=== PATIENT | female | born 1985 | race Caucasian/White ===

== ENCOUNTER 2016-12-28 07:34 | Observation (INO) | payer OTHER ==
[2016-12-28] VITALS (10 sets, daily range): BP systolic 119–138; BP diastolic 71–92; PULSE 90–112; RESP 16–30; TEMP 98.1–98.8; O2SAT 95–100
[~2016-12-28] VITALS: Ht 144.8 cm; Wt 50.0 kg
[2016-12-28] MEDS ORDERED: HYDROmorphone HCL PF 1 MG/ML VIAL IV PUSH ONE (08:15)
[2016-12-28] MEDS ORDERED: SODIUM CHLORIDE 0.9% FLUSH 5 ML FLUSH IVF PRN (08:15)
[2016-12-28 08:44] LABS: AUTOMATED NEUTROPHIL # 9.4 TH/MM3 (1.8-7.7); BASOPHIL % 0.1 % (0.0-2.0); EOSINOPHIL % 0.2 % (0.0-4.0); HEMATOCRIT 37.1 % (35.0-46.0); HEMO FLAGS DIFF FINAL; LYMPH % 15.2 % (9.0-44.0); LYMPHOCYTE # 1.9 TH/MM3 (1.0-4.8); MEAN CELL VOLUME 87.3 FL (80.0-100.0); MEAN CORPUSCULAR HEMOGLOBIN 29.8 PG (27.0-34.0); MEAN CORPUSCULAR HGB CONC 34.1 % (32.0-36.0); MONO % 9.6 % (0.0-8.0); NEUT % 74.9 % (16.0-70.0); PLATELET COUNT 293 TH/MM3 (150-450); RED BLOOD COUNT 4.25 MIL/MM3 (4.00-5.30); RED CELL DISTRIBUTION WIDTH 15.4 % (11.6-17.2); WHITE BLOOD COUNT 12.6 TH/MM3 (4.0-11.0)
[2016-12-28 08:51] LABS: APTT (PATIENT) 32.4 SEC (24.3-30.1); INTERNATIONAL NORMALIZED RATIO 0.9 RATIO; PROTHROMBIN TIME - PATIENT 10.2 SEC (9.8-11.6)
[2016-12-28 08:56] LABS: ANION GAP 9 MEQ/L (5-15); AST (GOT) 32 U/L (15-37); BICARBONATE 31.3 MEQ/L (21.0-32.0); BLOOD UREA NITROGEN 9 MG/DL (7-18); CHLORIDE 95 MEQ/L (98-107); GLOMERULAR FILTRATION RATE 91 ML/MIN (>89); POTASSIUM 3.9 MEQ/L (3.5-5.1); SODIUM (NA) 135 MEQ/L (136-145)
[2016-12-28 09:01] LABS: ALKALINE PHOSPHATASE 79 U/L (45-117); ALT (GPT) 55 U/L (10-53); TOTAL BILIRUBIN ADULT 0.9 MG/DL (0.2-1.0)
[2016-12-28 09:07] LABS: BACTERIA, URINE OCC /hpf; BLOOD, URINE NEG (NEG); COMMENT (UR) CULTURE INDICATED; CULTURE IF INDICATED CULTURE INDICATED; GLUCOSE,URINE 150 mg/dL (NEG); KETONE, URINE NEG (NEG); MUCUS URINE MANY /lpf (OCC); NITRITE,URINE NEG (NEG); PH, URINE 5.5 (5.0-8.5); SQUAMOUS EPITHELIAL CELL URINE 103 /hpf (0-5); URINE COLOR YELLOW (YELLW/STRAW)
--- NOTE | 2016-12-28 09:09 | RADRPT ---
EXAM DATE/TIME: 12/28/2016 08:46 [facility] COMPARISON: No previous studies available for comparison. INDICATIONS : Patient states left arm and chest pain. MEDICAL HISTORY : Smoker SURGICAL HISTORY : None. ENCOUNTER: Initial ACUITY: 1 day PAIN SCORE: 5/10 LOCATION: Bilateral chest FINDINGS: PA and lateral views of the chest demonstrate the lungs to be symmetrically aerated without evidence of mass, infiltrate or effusion. The cardiomediastinal contours are unremarkable. Osseous structure s are intact. CONCLUSION: No acute disease. Russ Mott MD FACR on December 28, 2016 at 9:07 Board Certified Radiologist. This report was verified electronically.
[2016-12-28 09:11] LABS: CREATINE KINASE 58 U/L (26-192)
[2016-12-28] MEDS ORDERED: IOHEXOL 350 MG/ML 10 ML VIAL (for RAD DIAG) IV ONE (10:16)
--- NOTE | 2016-12-28 10:29 | RADRPT ---
EXAM DATE/TIME: 12/28/2016 09:57 [facility] COMPARISON: No previous studies available for comparison. INDICATIONS : Left sided chest pain and shortness of breath for two days. IV CONTRAST: 50 cc Omnipaque 350 (iohexol) IV RADIATION DOSE: 5.21 CTDIvol (mGy) MEDICAL HISTORY : Hypertension. SURGICAL HISTORY : None. ENCOUNTER: Initial ACUITY: 2 days PAIN SCALE: 8/10 LOCATION: Left chest TECHNIQUE: Volumetric scanning of the chest was performed using a pulmonary embolism protocol MIP images were re constructed. Using automated exposure control and adjustment of the mA and/or kV according to patien t size, radiation dose was kept as low as reasonably achievable to obtain optimal diagnostic quality images. FINDINGS: PULMONARY ARTERIES: No filling defects are seen in the pulmonary arteries through the segmental level. LUNGS: There some mild patchy atelectasis or consolidation at the lower lobes being more prominent on the le ft. PLEURAE: There is no pleural thickening or pleural effusion. MEDIASTINUM: There is good visualization of the great vessels of the middle mediastinum. No evidence of mediastin al or hilar adenopathy/mass. MUSCULOSKELETAL: Within normal limits for patient age. MISCELLANEOUS: The visualized upper abdominal organs demonstrate no acute abnormality. CONCLUSION: 1. No pulmonary embolus. 2. Mild patchy atelectasis or consolidation at the bases. Sal King MD on December 28, 2016 at 10:24 Board Certified Radiologist. This report was verified electronically.
[2016-12-28] MEDS ORDERED: cefTRIAXone INJ 2,000 MG in SODIUM CHLORIDE 0.9% INJ 100 ML IV ONE (10:45)
[2016-12-28] MEDS ORDERED: AZITHROMYCIN INJ 500 MG in SODIUM CHLOR 0.9% 250 ML INJ 250 ML IV ONE (10:45)
--- NOTE | 2016-12-28 12:17 | PD ---
HPI Chief Complaint: Chest Pain Time Seen by Provider: 08:01 Travel History International Travel<30 days: No Contact w/Intl Traveler<30days: No Traveled to known affect area: No History of Present Illness HPI Patient is a 31-year-old female who comes in complaining of left-sided chest pain. She has history of IV drug abuse and recently traveled here from [place] by car. She says she has had the pain for the past 2 days. She describes it as severe pain to the left side of her chest. She denies any shortness of breath. She denies any fever or chills, but says she has just been feeling "sick." She denies any nausea or vomiting. PFS Past Medical History Hypertension: Yes Tetanus Vaccination: Unknown Influenza Vaccination: No ?: Not LMP: 4 YEARS AGO Social History Alcohol Use: Yes (OCCASIONALLY ) Tobacco Use: Yes Substance Use: Yes (MARIJUANA OCCASIONALLY ) Allergies-Medications (Allergen,Severity, Reaction): Coded Allergies: No Known Allergies (Unverified , 12/28/16) Review of Systems Except as stated in HPI: all other systems reviewed are Neg General / Constitutional: No: Fever, Chills HENT: No: Headaches, Lightheadedness Cardiovascular: Positive: Chest Pain or Discomfort Respiratory: Positive: Shortness of Breath Gastrointestinal: No: Nausea, Vomiting Musculoskeletal: No: Myalgias, Edema, Pain Skin: No Change in Pigmentation Neurologic: No: Weakness, Dizziness Physical Exam Narrative GENERAL: Awake and alert, in no acute distress. SKIN: Warm and dry. HEAD: Atraumatic. Normocephalic. EYES: Pupils equal and round. No scleral icterus. ENT: Mucous membranes pink and moist. NECK: Trachea midline. No JVD. CARDIOVASCULAR: Regular rate and rhythm. No murmur appreciated. RESPIRATORY: No accessory muscle use. Clear to auscultation. Breath sounds equal bilaterally. GASTROINTESTINAL: Abdomen soft, non-tender, nondistended. MUSCULOSKELETAL: No obvious deformities. No clubbing. No cyanosis. No edema. NEUROLOGICAL: Awake and alert. No obvious cranial nerve deficits. Motor grossly within normal limits. Normal speech. PSYCHIATRIC: Appropriate mood and affect; insight and judgment normal. Data Data Last Documented VS Vital Signs Date Time Temp Pulse Resp B/P Pulse Ox O2 Delivery O2 Flow Rate FiO2 12/28/16 11:00 98 20 125/78 98 12/28/16 09:26 Room Air 12/28/16 07:38 98.4 Orders Electrocardiogram (12/28/16 ) Complete Blood Count With Diff (12/28/16 08:11) Comprehensive Metabolic Panel (12/28/16 08:11) Act Partial Throm Time (Ptt) (12/28/16 08:11) Prothrombin Time / Inr (Pt) (12/28/16 08:11) Ckmb (Isoenzyme) Profile (12/28/16 08:11) Troponin I (12/28/16 08:11) Urinalysis - C+S If Indicated (12/28/16 08:11) Ua Includes Microscopic (12/28/16 08:11) Blood Culture (12/28/16 08:11) Iv Access Insert/Monitor (12/28/16 08:11) Ecg Monitoring (12/28/16 08:11) Oximetry (12/28/16 08:11) Oxygen Administration (12/28/16 08:11) Chest, Pa & Lat (12/28/16 08:11) Ct Pulmonary Angiogram (12/28/16 08:11) Sodium Chloride 0.9% Flush (Ns Flush) (12/28/16 08:15) Ed Urine Pregnancytest Poc (12/28/16 08:11) Hydromorphone Pf Inj (Dilaudid Pf Inj) (12/28/16 08:15) Urine Culture (12/28/16 08:15) Iohexol 350 Inj (Omnipaque 350 Inj) (12/28/16 10:16) Ceftriaxone Inj (Rocephin Inj) (12/28/16 10:45) Azithromycin Inj (Zithromax Inj) (12/28/16 10:45) Admit Order (Ed Use Only) (12/28/16 ) Labs Laboratory Tests Test 12/28/16 08:15 White Blood Count 12.6 TH/MM3 Red Blood Count 4.25 MIL/MM3 Hemoglobin 12.6 GM/DL Hematocrit 37.1 % Mean Corpuscular Volume 87.3 FL Mean Corpuscular Hemoglobin 29.8 PG Mean Corpuscular Hemoglobin 34.1 % Concent Red Cell Distribution Width 15.4 % Platelet Count 293 TH/MM3 Mean Platelet Volume 6.3 FL Neutrophils (%) (Auto) 74.9 % Lymphocytes (%) (Auto) 15.2 % Monocytes (%) (Auto) 9.6 % Eosinophils (%) (Auto) 0.2 % Basophils (%) (Auto) 0.1 % Neutrophils # (Auto) 9.4 TH/MM3 Lymphocytes # (Auto) 1.9 TH/MM3 Monocytes # (Auto) 1.2 TH/MM3 Eosinophils # (Auto) 0.0 TH/MM3 Basophils # (Auto) 0.0 TH/MM3 CBC Comment DIFF FINAL Differential Comment Prothrombin Time 10.2 SEC Prothromb Time International 0.9 RATIO Ratio Activated Partial 32.4 SEC Thromboplast Time Urine Color YELLOW Urine Turbidity CLOUDY Urine pH 5.5 Urine Specific [place] 1.028 Urine Protein 30 mg/dL Urine Glucose (UA) 150 mg/dL Urine Ketones NEG mg/dL Urine Occult Blood NEG Urine Nitrite NEG Urine Bilirubin NEG Urine Urobilinogen LESS THAN 2.0 MG/DL Urine Leukocyte Esterase TRACE Urine RBC 4 /hpf Urine WBC 13 /hpf Urine Squamous Epithelial 103 /hpf Cells Urine Bacteria OCC /hpf Urine Mucus MANY /lpf Microscopic Urinalysis Comment CULTURE INDICATED Sodium Level 135 MEQ/L Potassium Level 3.9 MEQ/L Chloride Level 95 MEQ/L Carbon Dioxide Level 31.3 MEQ/L Anion Gap 9 MEQ/L Blood Urea Nitrogen 9 MG/DL Creatinine 0.74 MG/DL Estimat Glomerular Filtration 91 ML/MIN Rate Random Glucose 99 MG/DL Calcium Level 8.6 MG/DL Total Bilirubin 0.9 MG/DL Aspartate Amino Transf 32 U/L (AST/SGOT) Alanine Aminotransferase 55 U/L (ALT/SGPT) Alkaline Phosphatase 79 U/L Total Creatine Kinase 58 U/L Troponin I LESS THAN 0.02 NG/ML Total Protein 8.0 GM/DL Albumin 3.4 GM/DL Urine Opiates Screen POS Urine Barbiturates Screen NEG Urine Amphetamines Screen POS Urine Benzodiazepines Screen NEG Urine Cocaine Screen NEG Urine Cannabinoids Screen NEG MDM Medical Decision Making Medical Screen Exam Complete: Yes Emergency Medical Condition: Yes Medical Record Reviewed: Yes Interpretation(s) ECG shows normal sinus rhythm, no ST elevation or depression. Differential Diagnosis ACS versus PE versus endocarditis Narrative Course Patient is a 31-year-old female with history of IV drug abuse comes in complaining of left-sided chest pain. Exam shows no acute abnormalities. IV established, labs sent. Patient connected to the court recording monitor. Labs show an elevated white blood cell count. CT of the chest performed to rule out PE. There is no PE, however there is possible consolidation. Patient treated with Rocephin and azithromycin. Admitted for further management and to rule out endocarditis. Diagnosis Primary Impression: Chest pain of uncertain etiology Admitting Information Admitting Physician Requests: Admit Candice Pollack MD Dec 28, 2016 12:17
[2016-12-28 13:09] LABS: AMPHETAMINE, URINE POS (NEG); BARBITURATES, URINE NEG (NEG); COCAINE, URINE NEG (NEG)
[2016-12-28] MEDS ORDERED: SODIUM CHLOR 0.9% 1000 ML INJ 1,000 ML IV SCH (13:14)
[2016-12-28] MEDS ORDERED: ONDANSETRON HCL 4 MG/2 ML VIAL IVP PRN (13:15)
[2016-12-28] MEDS ORDERED: NALOXONE HCL 0.4 MG/ML AMP IV PRN (13:15)
[2016-12-28] MEDS ORDERED: ACETAMINOPHEN 325 MG TAB PO PRN (13:15)
[2016-12-28] MEDS ORDERED: ASPIRIN 325 MG TAB PO SCH (13:15)
[2016-12-28] MEDS ORDERED: SODIUM CHLORIDE 0.9% FLUSH 5 ML FLUSH FLUSH PRN (13:15)
[2016-12-28] MEDS ORDERED: HEPARIN SODIUM - SQ 10,000 UNITS/ML VIAL SQ SCH (14:00)
--- NOTE | 2016-12-28 14:22 | HHI.HP ---
HPI Service Family Medicine Team B Primary Care Physician No Primary Care Physician Admission Diagnosis Pneumonia, R/O endocarditis Diagnoses: International Travel<30 Days: No Contact w/Intl Traveler<30days: No Known Affected Area: No History of Present Illness Patient is a 31 year old female with a PMH significant for IVDU who presents after a two-day history of chest pain. She pain started during the car ride though she cannot pinpoint how long into the ride, which took 48 hours. She was on a car ride from [place] over this time frame and notes no inciting trauma or falls prior to symptoms, but endorses that she often "falls out" after shooting up heroin or meth. She normally injects into her right neck but uses forearms as well. Breathing hurts so she finds herself short of breath since onset of pain. These symptoms have never happened before and she denies ever being hospitalized. She also denies a history of endocarditis, bacteremia, and skin infections. She denies radiation of the pain to the neck or arm but endorses that it is difficult to move the left arm due to chest pain. (Karime Cole MD R1) Review of Systems Constitutional: DENIES: Fever Endocrine: DENIES: Polydipsia, Polyuria Eyes: DENIES: Blurred vision, Diplopia, Eye pain, Vision loss, Photosensitivity Ears, nose, mouth, throat: COMPLAINS OF: Hoarseness, DENIES: Tinnitus, Hearing loss, Oral lesions, Throat pain, Ear Pain, Running Nose, Epistaxis Respiratory: COMPLAINS OF: Shortness of breath, DENIES: Cough, Snoring, Wheezing, Hemoptysis, Sputum production Cardiovascular: COMPLAINS OF: Chest pain, DENIES: Palpitations, Syncope, Lower Extremity Edema Gastrointestinal: DENIES: Abdominal pain, Black stools, Bloody stools, Constipation, Diarrhea, Nausea, Vomiting Genitourinary: COMPLAINS OF: Abnormal vaginal bleeding (amenorrhea) Musculoskeletal: DENIES: Joint pain, Muscle aches, Stiffness, Back pain, Neck pain Integumentary: DENIES: Rash Hematologic/lymphatic: DENIES: Bruising, Lymphadenopathy Neurologic: DENIES: Abnormal gait, Localized weakness, Seizures Psychiatric: DENIES: Anxiety, Depression, Suicidal Ideation, Homicidal Ideation (Karime Cole MD R1) Past Family Social History Past Medical History HTN per report - not on meds, diagnosed 12 years ago IVDU Past Surgical History None Reported Medications None (Karime Cole MD R1) Allergies: Coded Allergies: No Known Allergies (Unverified , 12/28/16) Active Ordered Medications Inpatient Medications Acetaminophen (Tylenol) 650 mg Q4H PRN PO TEMP > 100.4; Start 12/28/16 at 13:15 Aspirin 325 mg 325 mg NOW PO Last administered on 12/28/16 15:05; Start at 13:15; Stop 12/29/16 at 13:14 Azithromycin 500 mg/Sodium Chloride 250 ml @ 250 mls/hr ONCE ONCE IV Last administered on 12/28/16 11:15; Start 12/28/16 at 10:45; Stop 12/28/16 at 11:44 ; Status DC Ceftriaxone Sodium 1000 mg/ Sodium Chloride 100 ml @ 200 mls/hr Q24H IV ; Start 12/29/16 at 11:00 Ceftriaxone Sodium 2000 mg/ Sodium Chloride 100 ml @ 200 mls/hr ONCE ONCE IV Last administered on 12/28/16 10:45; Start 12/28/16 at 10:45; Stop 12/28/16 at 11:14; Status DC Enalaprilat (Vasotec Inj) 1.25 mg Q6H PRN IV PUSH SBP> OR = 180, DBP> OR = 100 ; Start 12/28/16 at 14:30 Heparin Sodium (Porcine) (Heparin Inj) 5,000 units Q8HR SQ Last administered on 12/28/16 14:07; Start 12/28/16 at 14:00 Hydromorphone HCl (Dilaudid Pf Inj) 0.5 mg Q4H PRN IV PUSH BREAKTHROUGH PAIN; Start 12/28/16 at 14:45 Hydromorphone HCl 0.5 mg 0.5 mg ONCE ONCE IV PUSH Last administered on 09:04; Start 12/28/16 at 08:15; Stop 12/28/16 at 08:16; Status DC Ibuprofen (Motrin) 600 mg Q6H PRN PO PAIN 3-5; Start 12/28/16 at 14:30 IV Flush (NS Flush) 2 ml BID FLUSH ; Start 12/28/16 at 21:00 Naloxone HCl (Narcan Inj) 0.4 mg UNSCH PRN IV SEE LABEL COMMENTS; Start at 13:15 Ondansetron HCl (Zofran Inj) 4 mg Q6H PRN IVP NAUSEA OR VOMITING; Start at 13:15 Sodium Chloride (NS 1000 ml Inj) 1,000 ml @ 100 mls/hr Q10H IV Last administered on 12/28/16t 14:05; Start 12/28/16 at 13:14 Vancomycin HCl/ Sodium Chloride (Vancomycin Inj/ NS 250 ml Inj) 250 ml @ 250 mls/hr Q24H IV Last administered on 12/28/16t 14:58; Start 12/28/16 at 15:00 Family History Father HTN Social History Smokes 1/2 PPD cigarettes (4 years) Denies EtOH Illicit drug use = heroin, meth (>10 years) (Karime Cole MD R1) Physical Exam Vital Signs Vital Signs Date Time Temp Pulse Resp B/P Pulse Ox O2 Delivery O2 Flow Rate FiO2 12/28/16 13:00 96 20 121/74 100 12/28/16 11:00 98 20 125/78 98 12/28/16 09:34 20 12/28/16 09:32 97 20 126/81 100 12/28/16 09:26 99 Room Air 12/28/16 09:26 100 Room Air 12/28/16 07:48 110 30 137/92 100 Room Air 12/28/16 07:48 112 30 97 Room Air 12/28/16 07:38 98.4 112 16 133/84 95 Physical Exam GENERAL: This is a well-nourished, well-developed female patient, lying in bed in no apparent distress. She appears tired. SKIN: Skin is notable for multiple healing linear marques on the posterior forearms, and multiple excoriations on the back and abdomen. The neck is notable for a linear track marcy overlying the jugular vein. No rashes, ecchymoses or lesions. No splinter hemorrhages or petechiae noted on the skin. HEAD: Atraumatic. Normocephalic. No temporal or scalp tenderness. EYES: Pupils equal round and reactive to light. Extraocular motions intact. No scleral icterus. No injection or drainage. ENT: Nose without bleeding, purulent drainage or septal hematoma. Throat without erythema, tonsillar hypertrophy or exudate. Uvula midline. Airway patent. NECK: Trachea midline. No JVD. Jugular vein has evidence of scarring in the mid section, mildly tender. One notable nontender LN on the left cervical chain, approximately 0.5cm. Supple, nontender, no meningeal signs. CARDIOVASCULAR: Regular rhythm without murmurs, gallops, or rubs. She is mildly tachycardic. CHEST: Patient has approximately 4 x 4 cm mass on the left upper chest below the clavicle, significantly tender to palpation. There is no overlying erythema. No evidence of fluctuance or induration. She has ecchymosis, mild, at the anterior mid chest, nontender. RESPIRATORY: Clear to auscultation without wheezes, rales or crackles. Breath sounds equal bilaterally. GASTROINTESTINAL: Abdomen soft, non-tender, nondistended. No hepato-splenomegaly , or palpable masses. No guarding. EXTREMITIES: Extremities without clubbing, cyanosis, or edema. No joint tenderness, effusion, or edema noted. No calf tenderness. Negative Homans sign bilaterally. The left foot is cool and dry, the right foot is warm and dry, pulses 2+ bilaterally in UE and LE. NEUROLOGICAL: Awake and alert. Cranial nerves II through XII intact. Motor and sensory grossly within normal limits. Five out of 5 muscle strength in all muscle groups. Normal speech. Laboratory Laboratory Tests Test 12/28/16 08:15 White Blood Count 12.6 Red Blood Count 4.25 Hemoglobin 12.6 Hematocrit 37.1 Mean Corpuscular Volume 87.3 Mean Corpuscular Hemoglobin 29.8 Mean Corpuscular Hemoglobin 34.1 Concent Red Cell Distribution Width 15.4 Platelet Count 293 Mean Platelet Volume 6.3 Neutrophils (%) (Auto) 74.9 Lymphocytes (%) (Auto) 15.2 Monocytes (%) (Auto) 9.6 Eosinophils (%) (Auto) 0.2 Basophils (%) (Auto) 0.1 Neutrophils # (Auto) 9.4 Lymphocytes # (Auto) 1.9 Monocytes # (Auto) 1.2 Eosinophils # (Auto) 0.0 Basophils # (Auto) 0.0 CBC Comment DIFF FINAL Differential Comment Prothrombin Time 10.2 Prothromb Time International 0.9 Ratio Activated Partial 32.4 Thromboplast Time Urine Color YELLOW Urine Turbidity CLOUDY Urine pH 5.5 Urine Specific [place] 1.028 Urine Protein 30 Urine Glucose (UA) 150 Urine Ketones NEG Urine Occult Blood NEG Urine Nitrite NEG Urine Bilirubin NEG Urine Urobilinogen LESS THAN 2.0 Urine Leukocyte Esterase TRACE Urine RBC 4 Urine WBC 13 Urine Squamous Epithelial 103 Cells Urine Bacteria OCC Urine Mucus MANY Microscopic Urinalysis Comment CULTURE INDICATED Sodium Level 135 Potassium Level 3.9 Chloride Level 95 Carbon Dioxide Level 31.3 Anion Gap 9 Blood Urea Nitrogen 9 Creatinine 0.74 Estimat Glomerular Filtration 91 Rate Random Glucose 99 Calcium Level 8.6 Total Bilirubin 0.9 Aspartate Amino Transf 32 (AST/SGOT) Alanine Aminotransferase 55 (ALT/SGPT) Alkaline Phosphatase 79 Total Creatine Kinase 58 Troponin I LESS THAN 0.02 Total Protein 8.0 Albumin 3.4 Urine Opiates Screen POS Urine Barbiturates Screen NEG Urine Amphetamines Screen POS Urine Benzodiazepines Screen NEG Urine Cocaine Screen NEG Urine Cannabinoids Screen NEG Date/Time Procedure Status Source Growth 12/28/16 08:20 Aerobic Blood Culture Received Blood Line Pending 12/28/16 08:20 Anaerobic Blood Culture Received Blood Line Pending 12/28/16 08:15 Urine Culture Received Urine Clean Catch Pending (Karime Cole MD R1) Result Diagram: 12/28/1615 12/28/1615 Assessment and Plan Assessment and Plan 31 year old female with history of IVDU who presents with left-sided chest pain and left-sided chest mass. Initial cardiac enzymes and EKG negative for ischemia. CTA negative for PE. Admitted for rule out of cardiac source of chest pain, rule out endocarditis. Code Status Full Code Discussed Condition With SDW Dr. Mitchel Tyson (Karime Cole MD R1) Attending Attestation The patient has been seen and examined. The chart and all resident notes have been reviewed. I agree that inpatient care is appropriate and that a two midnight stay is expected for the reasons documented in the resident history and physical. I have discussed this with the resident and certify the resident s order for inpatient admission. (Miriam Tyson MD) Problem List: (1) Chest pain of uncertain etiology Status: Acute Plan: Low suspicion for cardiac etiology given palpable CP and chest mass more suggestive of hematoma vs. infection. Differential also includes costochondritis. Must rule out ACS, PE, endocarditis. EKG showing rate of 106, sinus rhythm, no interval changes, normal axis, no ST depressions or elevations , no Q waves, no evidence of peaked T waves. Initial troponin <0.02 Plan: ASA 325mg PO x 1 given in ED Trend Trop/CKMB/EKG 1400 and 1999 Pain management documented below Hospital Course: CXR 12/28 negative CTA 12/28 negative but mild patchy atelectasis or consolidation at the bases noted (2) Mass of chest wall, left Status: Acute Plan: Patient denies history of known trauma but states she "falls out" often after IVDU Differential includes hematoma, abscess, cyst US soft tissue ordered - shows induration in the cutaneous tissues suspicious for an early inflammatory process Will monitor for progression while working up endocarditis, may drain if indicated Pain control with Tylenol and Ibuprofen alternating for mild pain Pain control with Percocet 10mg PO q4hr PRN breakthrough pain (3) Endocarditis Status: Acute Plan: Possible endocarditis given history of IVDU and chest pain reported. No murmur noted on admission. Will rule out. -Vancomycin 1 g IV every 24 hours and Rocephin 1 g IV every 24 hours empirically started given meeting SIRS criteria with heart rate, respiratory rate, and white count -Echo pending -Blood cultures pending -Trend CBC (4) IV drug abuse Status: Acute Plan: UDS positive for opiates and amphetamines Notes recent use of heroin on December 26, chronic use of heroin and meth endorsed. History of cocaine use 4 years ago. US neck ordered given history of drug use, palpable thickening of jugular vein on right neck, unremarkable (5) Urine abnormality Status: Acute Plan: Endorses foul-smelling urine UA dirty, with >10 squamous cells Will repeat UA as straight cath Rocephin 1g IV q24h Lactic acid 1.6 (6) SIRS (systemic inflammatory response syndrome) Status: Acute Plan: Meeting SIRS criteria with tachypnea and tachycardia, with WBC 12.6 on admission. Possible sources include bacteremia secondary to IVDU, UTI, PNA Rocephin and Azithro x 1 in ED Continue Rocephin 1 g IV q24hr Will add Vancomycin 1 g IV q24hr given meeting SIRS criteria and as empirical treatment for endocarditis (7) HTN (hypertension) Status: Acute Plan: Per patient report, diagnosed 20 years ago but not on meds. BP 137/92 on admission, normotensive now. -Monitor VS -PRN vasotec (8) Fluids/Electrolytes/Nutrition/Prophylaxis Status: Acute Plan: Fluids: NS @ 110ml/hr Electrolytes: monitor and replete as needed Nutrition: heart-healthy diet DVT Prophylaxis: Heparin 5000U subQ q12hr GI Prophylaxis: not indicated (Karime Cole MD R1) Karime Cole MD R1 Dec 28, 2016 14:22 Miriam Tyson MD Dec 28, 2016 19:11
[2016-12-28] MEDS ORDERED: ENALAPRILAT 1.25 MG/ML VIAL IV PUSH PRN (14:30)
[2016-12-28] MEDS ORDERED: IBUPROFEN 600 MG TAB PO PRN (14:30)
[2016-12-28] MEDS ORDERED: HYDROmorphone HCL PF 1 MG/ML VIAL IV PUSH PRN (14:45)
--- NOTE | 2016-12-28 14:50 | EKG ---
Date Performed: 12/28/2016 Time Performed: 07:52:12 PTAGE: 31 years EKG: SINUS TACHYCARDIA NONSPECIFIC T-WAVE ABNORMALITY ABNORMAL RHYTHM ECG NO PREVIOUS TRACING DOCTOR: Ann Styles Interpretating Date/Time 12/28/2016 14:48:24
[2016-12-28 14:55] LABS: CREATINE KINASE 42 U/L (26-192)
[2016-12-28] MEDS ORDERED: VANCOMYCIN INJ 1,000 MG in SODIUM CHLOR 0.9% 250 ML INJ 250 ML IV SCH (15:00)
--- NOTE | 2016-12-28 15:08 | RADRPT ---
EXAM DATE/TIME: 12/28/2016 14:38 [facility] COMPARISON: No previous studies available for comparison. INDICATIONS : IV drug use in right neck. MEDICAL HISTORY : Hypertension. IV drug use. SURGICAL HISTORY : None. ENCOUNTER: Initial ACUITY: 2 day PAIN SCORE: 2/10 LOCATION: Right neck. AREA EVALUATED: Right lateral neck. FINDINGS: A targeted ultrasound of the right lateral neck has been performed. No of mass or fluid collection is seen. CONCLUSION: Negative targeted ultrasound of the right neck. Sal King MD on December 28, 2016 at 15:05 Board Certified Radiologist. This report was verified electronically.
--- NOTE | 2016-12-28 15:11 | RADRPT ---
EXAM DATE/TIME: 12/28/2016 14:37 [facility] COMPARISON: CT PULMONARY ANGIOGRAM, December 28, 2016, 9:57. INDICATIONS : IV drug use in right neck. Swelling in left anterior chest. MEDICAL HISTORY : Hypertension. IV drug use. SURGICAL HISTORY : None. ENCOUNTER: Initial ACUITY: 2 day PAIN SCORE: 5/10 LOCATION: Left anterior chest. AREA EVALUATED: Left anterior chest. FINDINGS: Middle soft tissue mass in the left anterior chest containing fluid probably representing an inflamma tory process without focal abscess.. This can easily be followed by ultrasound. CONCLUSION: Induration in subcutaneous tissues left chest suspicious for an early inflammatory pr ocess. Russ Mott MD FACR on December 28, 2016 at 15:07 Board Certified Radiologist. This report was verified electronically.
[2016-12-28] MEDS ORDERED: cloNIDine HCL 0.1 MG TAB PO PRN (16:30)
[2016-12-28] MEDS ORDERED: oxyCODONE/ACETAMINOPHEN 10 MG/325 MG TAB PO PRN (17:15)
--- NOTE | 2016-12-28 19:11 | HHI.FPPN ---
Subjective Subjective Patient seen and examined. Case reviewed and discussed Please refer to resident H&P for further details regarding HPI, ROS, PMH, SurgHx , FH and SocHx In summary, patient is a 31 yoF with a history of IVDU presenting with a 2 days history of chest pain. The patient reports it was sudden onset without known trauma across her L chest. She is seen resting in her hospital bed, pain stable. No shortness of breath. Ultrasound taking place. [facility] Objective Objective Laboratory Tests - Abnormals Test 12/28/16 12/28/16 08:15 14:00 White Blood Count 12.6 TH/MM3 Mean Platelet Volume 6.3 FL Neutrophils (%) (Auto) 74.9 % Monocytes (%) (Auto) 9.6 % Neutrophils # (Auto) 9.4 TH/MM3 Monocytes # (Auto) 1.2 TH/MM3 Activated Partial 32.4 SEC Thromboplast Time Urine Turbidity CLOUDY Urine Protein 30 mg/dL Urine Glucose (UA) 150 mg/dL Urine Leukocyte Esterase TRACE Urine RBC 4 /hpf Urine WBC 13 /hpf Urine Bacteria OCC /hpf Urine Mucus MANY /lpf Sodium Level 135 MEQ/L Chloride Level 95 MEQ/L Alanine Aminotransferase 55 U/L (ALT/SGPT) Troponin I LESS THAN 0.02 LESS THAN 0.02 NG/ML NG/ML Urine Opiates Screen POS Urine Amphetamines Screen POS Vital Signs 12/28/16 12/28/16 12/28/16 12/28/16 07:38 07:48 07:48 09:26 Temp 98.4 Pulse 112 112 110 Resp 16 30 30 B/P 133/84 137/92 Pulse Ox 95 97 100 100 O2 Delivery Room Air Room Air Room Air 12/28/16 12/28/16 12/28/16 12/28/16 09:26 09:32 09:34 11:00 Pulse 97 98 Resp 20 20 20 B/P 126/81 125/78 Pulse Ox 99 100 98 O2 Delivery Room Air 12/28/16 12/28/16 12/28/16 13:00 14:34 15:22 Temp 98.8 Pulse 96 90 92 Resp 20 16 B/P 121/74 138/87 Pulse Ox 100 97 Physical exam GENERAL: wdwn female resting in bed, NAD, awake SKIN: Warm and dry. Scattered track marques over extremities, neck HEAD: Normocephalic. AT EYES: No scleral icterus. No injection or drainage. ENT: OP clear. MMM NECK: Supple, trachea midline. No JVD or lymphadenopathy. CARDIOVASCULAR: Regular rate and rhythm without murmurs, gallops, or rubs. CHEST: Area ~5cm x 4cm TTP over L pectoralis with warmth, no erythema, no fluctuance. RESPIRATORY: Breath sounds equal and clear to auscultation bilaterally. No accessory muscle use. GASTROINTESTINAL: Abdomen soft, non-tender, nondistended. MUSCULOSKELETAL: No cyanosis, or edema. No calf tenderness. BACK: Nontender without obvious deformity. No CVA tenderness. NEURO: Awake and alert. Normal speech. CN grossly intact. MAEW Assessment Assessment 31yoF admitted with: Sepsis with consolidation noted on CT Chest Chest pain, r/o endocarditis vs soft tissue infection vs injury IVDU, PSA Leukocytosis Tachycardia PLAN PLAN Empiric antibiotic therapy Blood cultures IVF 2D echo Soft tissue ultrasound Repeat UA, clean catch or cath Trend cbc Counseled on drug use Patient seen and examined. Case reviewed and discussed Agree with plan of care as discussed with me and documented in the resident note. Miriam Tyson MD Dec 28, 2016 19:11
[2016-12-28] MEDS ORDERED: SODIUM CHLORIDE 0.9% FLUSH 5 ML FLUSH FLUSH SCH (21:00)
--- NOTE | 2016-12-28 22:54 | PD.AMA ---
Karime Cole MD R1 12/28/16 2254: Against Medical Advice Note Discharge Disposition: Against Medical Advice Pt Condition on Discharge: Stable AMA Statement Patient Soraida Lau has decided to leave the hospital against medical advice. This patient has the capacity to refuse care and understands the risks of leaving, including permanent disability and/or , and has had an opportunity to ask questions about her condition. The patient has been informed that she may return for care at any time, and follow up has been arranged/ advised. Miriam Tyson MD 01/04/17 1016: Karime Cole MD R1 Dec 28, 2016 22:54 Miriam Tyson MD Jan 04, 2017 10:16
--- NOTE | 2016-12-29 09:39 | EC ---
Study Study Date:12/28/2016 STUDY CONCLUSIONS SUMMARY LEFT VENTRICLE: The cavity size was normal. Wall thickness was normal. Systolic function was normal. The estimated ejection fraction was in the range of 60% to 65%. Wall motion was normal; there were no regional wall motion abnormalities. Impressions: No evidence of endocarditis. If LV function is below 40, please consider prescribing an ACEI or ARB or document rationale for non-use. PROCEDURE DATA STUDY STATUS: Elective. Procedure: Transthoracic echocardiography. Image quality was good. Scanning was performed from the parasternal, apical, and subcostal acoustic windows. Study completion: The patient tolerated the procedure well. Transthoracic echocardiography. M-mode, complete 2D, complete spectral Doppler, and color Doppler. Patient status: Inpatient. CARDIAC ANATOMY LEFT VENTRICLE: The cavity size was normal. Wall thickness was normal. Systolic function was normal. The estimated ejection fraction was in the range of 60% to 65%. Wall motion was normal; there were no regional wall motion abnormalities. AORTIC VALVE: The valve appears to be grossly normal. Doppler: There was no stenosis. No significant regurgitation. MITRAL VALVE: The valve appears to be grossly normal. Doppler: There was no evidence for stenosis. Trace regurgitation. LEFT ATRIUM: The atrium was normal in size. RIGHT VENTRICLE: The cavity size was normal. The moderator band was in a normal position. PULMONIC VALVE: Not well visualized. Doppler: There was no evidence for stenosis. No significant regurgitation. TRICUSPID VALVE: The valve appears to be grossly normal. Doppler: There was no evidence for stenosis. Trace regurgitation. PERICARDIUM: There was no pericardial effusion. Prepared and signed by Norris Artis [id number]
[2016-12-29] MEDS ORDERED: cefTRIAXone INJ 1,000 MG in SODIUM CHLORIDE 0.9% INJ 100 ML IV SCH (11:00)
--- NOTE | 2016-12-30 07:25 | EKG ---
Date Performed: 12/28/2016 Time Performed: 13:54:48 PTAGE: 31 years EKG: Sinus rhythm NORMAL ECG Compared to the PREVIOUS TRACING sinus rate has slowed PREVIOUS TRACIN12/28/2016 07.52 DOCTOR: Dane Castellano Interpretating Date/Time 12/30/2016 07:24:41
== END 2016-12-28 21:36 | disposition left against medical advice (07) ==
LOC: NEPE 07:34 → INTOOBSV 12:18 → NEDA 12:18 → NEPHCDU 14:38 → UNDODISIN 21:36
PROVIDERS: ADMIT Family Medicine; ATTEND Family Medicine
DX: R07.9 Chest pain, unspecified (principal); I38 Endocarditis, valve unspecified; R22.2 Localized swelling, mass and lump, trunk; R65.10 Systemic inflammatory response syndrome (SIRS) of non-infectious origin without acute organ dysfunction; F17.210 Nicotine dependence, cigarettes, uncomplicated; I10 Essential (primary) hypertension; F19.10 Other psychoactive substance abuse, uncomplicated; Z79.82 Long term (current) use of aspirin; R82.90 Unspecified abnormal findings in urine
CPT/HCPCS: 71020; 71275; 76536; 76999; 80053; 80307; 81001; 82550; 82948; 83605; 84484; 84703; 85025; 85610; 85730; 86403; 87040; 87086; 93005; 93306; 94150; 96365; 96367; 96375; 99285; G0378; J0456; J0696; J1170; J1644; J3370; J7030; J7050; Q9967